=== PATIENT | male | born 1970 | race Caucasian/White ===

== ENCOUNTER 2019-07-19 16:06 | Emergency (ER) | payer BC ==
[2019-07-19 16:15] VITALS: BP 144/81; RESP 18; TEMP 98.5
[2019-07-19] MEDS ORDERED: IPRATROPIUM-ALBUTEROL 3 ML NEB INHALATION STA (16:37)
--- NOTE | 2019-07-19 16:42 | ED ---
General Adult HPI - General Chief complaint: Shortness of Breath Stated complaint: Bronchitis Time Seen by Provider: 07/19/19 16:25 Source: patient Mode of arrival: ambulatory Limitations: no limitations - History of Present Illness Initial comments: Patient presents to the ED with his for evaluation. Patient states that he has had a productive cough for the past week or so, and he states that he has "not felt well". Patient states that he was seen at an urgent care 3 days ago, and he was started on a course of prednisone at that time. Patient also states that he was prescribed an albuterol inhaler and albuterol nebules for his nebulizer machine. Patient states that despite these treatments, his symptoms have not improved. Patient denies feeling dyspneic to me. Patient denies having any pain, fever or chills, headache, sore throat, chest pain, hemoptysis, palpitations, dizziness, abdominal pain, nausea/vomiting/diarrhea, dysuria or urinary symptoms, decreased urine output, leg or calf swelling or pain, or any other symptoms or complaints. - Related Data Previous Rx's Medication Instructions Recorded Doxycycline Hyclate 100 mg PO Q12H 7 Days #14 tab 07/19/19 Allergies Allergy/AdvReac Type Severity Reaction Status Date / Time No Known Allergies Allergy Verified 07/19/19 16:15 Review of Systems ROS Statement: Those systems with pertinent positive or pertinent negative responses have been documented in the HPI. ROS Other: All systems not noted in ROS Statement are negative. Past Medical History Past Medical History: No Reported History Additional Past Surgical History / Comment(s): fatty lyphoma- back Past Psychological History: No Psychological Hx Reported Smoking Status: Current every day smoker Past Alcohol Use History: Occasional Past Drug Use History: None Reported General Exam Limitations: no limitations General appearance: alert, in no apparent distress Head exam: Present: atraumatic, normocephalic Eye exam: Present: normal appearance, EOMI ENT exam: Present: normal oropharynx, mucous membranes moist Neck exam: Present: other (Trachea is in midline) Respiratory exam: Present: normal lung sounds bilaterally, other (Moderate bilateral expiratory wheezes). Absent: respiratory distress, rales, rhonchi Cardiovascular Exam: Present: regular rate, normal rhythm, normal heart sounds, other (Normal radial pulses bilaterally) GI/Abdominal exam: Present: soft. Absent: distended, tenderness, guarding Extremities exam: Present: other (Negative Sarah's sign bilaterally). Absent: tenderness, pedal edema, calf tenderness Neurological exam: Present: alert, oriented X3. Absent: motor sensory deficit Psychiatric exam: Present: normal affect, normal mood Skin exam: Present: warm, dry, intact, normal color Course Vital Signs 07/19/19 07/19/19 07/19/19 16:13 16:55 17:02 Temperature 98.5 F Pulse Rate 87 82 86 Respiratory 18 18 18 Rate Blood Pressure 144/81 O2 Sat by Pulse 95 Oximetry Medical Decision Making - Medical Decision Making Patient reports some relief with the DuoNeb treatment that he was given in the ED, and his wheezing has improved on examination at this time. Patient remains alert and breathing comfortably with a normal room air oxygen saturation. Patient's chest x-ray is negative for focal infiltrate. Patient's influenza studies are negative. Will treat patient with a course of doxycycline for a possible bacterial etiology of his acute bronchitis. Patient was instructed to continue using his albuterol inhaler and nebulizer machine as needed/as prescribed. He was also instructed to complete the course of prednisone that he is currently taking. Patient and are aware of the patient's test results, and patient feels comfortable going home at this time. He was counseled about acute bronchitis and wheezing. He was clearly explained return and follow-up instructions. He was instructed to return to the ED should he develop increased shortness of breath or new or worsening symptoms. He was instructed to follow up closely with his primary care provider. Will provide the patient with a work excuse note for tomorrow per his request. - Lab Data Lab Results 07/19/19 Range/Units 14:40 Influenza Type A RNA Not Detected (Not Detectd) Influenza Type B (PCR) Not Detected (Not Detectd) - Radiology Data Radiology results: image reviewed (Chest x-ray shows emphysematous changes, but no focal airspace disease) Disposition Clinical Impression: Acute bronchitis with wheezing Disposition: HOME SELF-CARE Condition: Stable Instructions (If sedation given, give patient instructions): Acute Bronchitis (ED), Bronchospasm (ED) Additional Instructions: Return to the ER immediately should you develop increased shortness of breath, a high fever, chest pain, vomiting, feeling dizzy or faint, or new or worsening symptoms. Follow up closely with your primary care provider. Prescriptions: Doxycycline Hyclate 100 mg PO Q12H 7 Days #14 tab Is patient prescribed a controlled substance at d/c from ED?: No Referrals: Barby Mac DO [Primary Care Provider] - 1-2 days Time of Disposition: 17:10
[2019-07-19] MEDS ORDERED: DOXYCYCLINE 100 MG CAP PO STA (16:57)
--- NOTE | 2019-07-19 16:58 | XR ---
EXAMINATION TYPE: XR chest 2V DATE OF EXAM: 07/19/2019 COMPARISON: NONE HISTORY: Cough and congestion. TECHNIQUE: Frontal and lateral views of the chest are obtained. FINDINGS: Underlying emphysematous change may be present. There is no focal air space opacity, pleura l effusion, or pneumothorax seen. The cardiac silhouette size is within normal limits. The osseous structures are intact. IMPRESSION: No suspicious acute pulmonary process.
[2019-07-19 17:03] VITALS: PULSE 86
== END 2019-07-19 17:05 | disposition home or self-care (01) ==
LOC: EC 16:06
DX: J20.9 Acute bronchitis, unspecified (principal); F17.200 Nicotine dependence, unspecified, uncomplicated
CPT/HCPCS: 71046; 87502; 94640; 99285

== ENCOUNTER 2021-03-06 02:18 | Emergency (ER) | payer BC ==
[2021-03-06 02:25] VITALS: BP 140/97; PULSE 81; RESP 18; TEMP 98
--- NOTE | 2021-03-06 02:55 | ED ---
Eye Problem HPI - General Chief complaint: Eye Problems Stated complaint: Eye Problems Time Seen by Provider: 03/06/21 02:23 Source: patient, RN notes reviewed, old records reviewed Mode of arrival: ambulatory Limitations: no limitations - History of Present Illness Initial comments: This is a 51-year-old male to the emergency department for evaluation of eye pain patient has bilateral eye pain more right-sided eye pain. Symptoms on and off for months that have been increased lately. Patient also admits to runny nose, congestion. No fevers no traumas. Some blurry vision although that is improved. No other complaints MD chief complaint: eye pain, vision change (Blurry) -: month(s) Onset Description: gradual Location: right eye, left eye, both eyes Place: home If Injury: none Eye Symptoms: blurry vision Severity: mild Severity scale (1-10): 5 If Pain, Quality: aching, throbbing Consistency: intermittent Context: recent uri Associated Symptoms: none Treatments Prior to Arrival: none - Related Data Previous Rx's Medication Instructions Recorded Doxycycline Hyclate 100 mg PO Q12H 7 Days #14 tab 07/19/19 Amoxic-Pot Clav 875-125Mg 1 tab PO Q12HR #20 tablet 03/06/21 [Augmentin 875-125] Allergies Allergy/AdvReac Type Severity Reaction Status Date / Time No Known Allergies Allergy Verified 03/06/21 02:25 Review of Systems ROS Statement: Those systems with pertinent positive or pertinent negative responses have been documented in the HPI. ROS Other: All systems not noted in ROS Statement are negative. Past Medical History Past Medical History: No Reported History Additional Past Surgical History / Comment(s): fatty lyphoma- back Past Psychological History: No Psychological Hx Reported Smoking Status: Never smoker Past Alcohol Use History: Occasional Past Drug Use History: None Reported General Exam - General Exam Comments Initial Comments: No foreign body noted No abrasion noted Pressure is normal No pain to touch General appearance: alert, in no apparent distress Head exam: Present: atraumatic, normocephalic, normal inspection Eye exam: Present: normal appearance, PERRL, EOMI. Absent: scleral icterus, con junctival injection, periorbital swelling ENT exam: Present: normal exam, mucous membranes moist Neck exam: Present: normal inspection. Absent: tenderness, meningismus, lymphadenopathy Respiratory exam: Present: normal lung sounds bilaterally. Absent: respiratory distress, wheezes, rales, rhonchi, stridor Cardiovascular Exam: Present: regular rate, normal rhythm, normal heart sounds. Absent: systolic murmur, diastolic murmur, rubs, gallop, clicks GI/Abdominal exam: Present: soft, normal bowel sounds. Absent: distended, tenderness, guarding, rebound, rigid Extremities exam: Present: normal inspection, full ROM, normal capillary refill. Absent: tenderness, pedal edema, joint swelling, calf tenderness Back exam: Present: normal inspection Neurological exam: Present: alert, oriented X3, CN II-XII intact Psychiatric exam: Present: normal affect, normal mood Skin exam: Present: warm, dry, intact, normal color. Absent: rash Course Vital Signs 03/06/21 02:21 Temperature 98 F Pulse Rate 81 Respiratory 18 Rate Blood Pressure 140/97 O2 Sat by Pulse 96 Oximetry - Reevaluation(s) Reevaluation #1: 03/06/21 04:50 Record is reviewed Patient symptoms are improved here in the ER Patient is informed of results and questions are answered Patient is in no distress Medical Decision Making - Medical Decision Making 51 male presented today for evaluation of bilateral eye pain patient does appear to have a significant sinusitis will be placed on antibiotics discharge home. No current vision changes - Radiology Data Radiology results: report reviewed (CT facial bones is positive for sinusitis), image reviewed Disposition Clinical Impression: Sinusitis Disposition: HOME SELF-CARE Condition: Good Instructions (If sedation given, give patient instructions): Sinusitis (ED) Prescriptions: Amoxic-Pot Clav 875-125Mg [Augmentin 875-125] 1 tab PO Q12HR #20 tablet Is patient prescribed a controlled substance at d/c from ED?: No Referrals: Barby Mac DO [Primary Care Provider] - 1-2 days
--- NOTE | 2021-03-06 03:17 | CT ---
EXAMINATION TYPE: CT facial bones wo con DATE OF EXAM: 03/06/2021 COMPARISON: None HISTORY: right eye pressure CT DLP: 462.4 mGycm Automated exposure control for dose reduction was used. Images obtained from the bottom of the mandible to the top of the frontal sinuses without contrast. Mandibular ring is intact. Zygomatic arches appear normal. Nasal bone is intact. Maxilla is intact. T here is no evidence of retro-orbital mass. The globes are symmetric. There is no evidence of orbital fracture. There is no evidence of a blowout fracture of the orbits. There is small mucus retention cy sts in the maxillary sinuses. There is some mucosal thickening in the frontal and ethmoid sinuses. There is no evidence of periorbital mass. IMPRESSION: No evidence of orbital mass. I do not see a cause for right side pain. Small mucus retention cysts in the maxillary sinuses. Mild frontal and anterior ethmoid sinusitis.
[2021-03-06] MEDS ORDERED: ACET/COD 300 MG/30 MG STARTER PACK 6 TAB BTL PO STA (03:27)
[2021-03-06] MEDS ORDERED: ACETAMINOPHEN TAB 325 MG TAB PO STA (03:27)
[2021-03-06] MEDS ORDERED: AMOXIC-POT CLAV 875-125MG 1 EACH TAB PO STA (03:27)
[2021-03-06] MEDS ORDERED: Acetaminophen-Codeine 300-30mg TAB PO STA (03:27)
[2021-03-06] MEDS ORDERED: IBUPROFEN 600 MG TAB PO STA (03:27)
[2021-03-06] MEDS ORDERED: IBUPROFEN 600 MG STARTER PACK 4 TAB BTL PO STA (03:27)
[2021-03-06] MEDS ORDERED: AMOXIC-POT CLAV 875MG STARTER PACK 2 TAB BTL PO STA (03:27)
[2021-03-06] MEDS ORDERED: LORATADINE-PSEUDOEPH 5-120 MG 1 EACH TAB.ER.12H PO ONE (03:30)
== END 2021-03-06 03:56 | disposition home or self-care (01) ==
LOC: EC 02:18
DX: J32.9 Chronic sinusitis, unspecified (principal)
CPT/HCPCS: 70486; 99283

== ENCOUNTER → 2023-01-08 | Outpatient (CLI) | payer BC ==
--- NOTE | 2023-01-08 09:07 | CTL ---
EXAMINATION TYPE: CT Low Dose Lung DATE OF EXAM ORDERED: 01/08/2023 HISTORY: 52-year-old male Z87.891, nicotine dependence, current smoker, 38 pack-year history. Lung ca ncer screening CT DLP: 100.[address] CTDI: 2.40 mGy Automated exposure control for dose reduction was used. SCREENING VISIT: Baseline COMPARISON: Radiograph 07/19/2019 TECHNIQUE: Low dose computed tomography scan was performed through the chest at 1 mm thick sections a nd reconstructed images in multiple planes at 1 mm and [address] DIAGNOSTIC QUALITY: Satisfactory FINDINGS: Heart normal size without pericardial effusion. 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 Conventional arch vessel branching anatomy. No thoracic lymphadenopathy by CT size criteria. Biapical pleural parenchymal scarring. Mild diffuse bronchial wall thickening. Prominent paraseptal e mphysema in the upper and midlungs. No consolidation or pleural effusion. 6 mm anterior right midlung pulmonary nodule, axial 188. Tiny 3 mm inferior lingular pulmonary nodule, axial image 254. Visualized upper abdomen shows no gross abnormality. Bones: Mild scattered degenerative disc disease. IMPRESSION: 1. LungRADS Category 3 (probably benign, 1-2% chance of malignancy); a couple pulmonary nodules measu ring up to 6 mm on baseline screening. 2. COPD with prominent upper lung paraseptal emphysema. 3. Mild aneurysm ascending aorta 4.[address] LUNG RAD AND CT CHEST RECOMMENDATION: Lung-Rad 3 Probably Benign: 6 month follow-up LDCT.
== END | disposition home or self-care (01) ==
LOC: RADCTMAIN 06:05
PROVIDERS: ATTEND Physician Assistant Medical
DX: Z12.2 Encounter for screening for malignant neoplasm of respiratory organs (principal); J43.9 Emphysema, unspecified; I71.21 Aneurysm of the ascending aorta, without rupture; F17.210 Nicotine dependence, cigarettes, uncomplicated; R91.8 Other nonspecific abnormal finding of lung field
CPT/HCPCS: 71271

== ENCOUNTER → 2023-07-08 | Outpatient (CLI) | payer BC ==
--- NOTE | 2023-07-08 12:01 | CT ---
EXAMINATION TYPE: CT chest w con DATE OF EXAM: 07/08/2023 COMPARISON: 01/08/2023 HISTORY: Abnormal finding of lung field CT DLP: 254.60 mGycm, Automated exposure control for dose reduction was used. CONTRAST: Performed injected with 100 ml mL of Isovue 300. TECHNIQUE: Axial images were obtained at 5 mm thick sections. Reconstructed images are reviewed on [employer]atter computer in the coronal plane. FINDINGS: Portion of the thyroid visualized is normal. Emphysematous changes are present. Paraseptal emphysematous changes are present on the right. Some sc arring is likely present on the right apex. Small density within the anterior right lung appears stable from the comparison. Series 4 image 40. Small lingular density not identified on the current exam. Encourage smoking cessation. Series 4 image 14. No enlarged mediastinal or hilar adenopathy is evident. The ascending aorta diameter at the level o f the main pulmonary artery is 3.5 cm. The main pulmonary artery diameter at the bifurcation is 2.[address] sections are obtained through the upper abdomen. Abdomen is essentially unremarkable. IMPRESSION: 1. Emphysematous changes within the lung chisholm. 2. Stable right midlung density. Follow-up CT chest in 6 months is recommended. 3. Encourage smoking cessation.
== END | disposition home or self-care (01) ==
LOC: RADCTMAIN 08:27
PROVIDERS: ATTEND Family Medicine
DX: J43.9 Emphysema, unspecified (principal); R91.8 Other nonspecific abnormal finding of lung field
CPT/HCPCS: 71260; Q9967

== ENCOUNTER 2023-10-15 08:47 | Day surgery (SDC) | payer BC ==
[2023-10-14 08:51] VITALS: BMI 21.4
[2023-10-15] MEDS: LACTATED RINGERS 1,000 ML IV SCH (09:15)
[2023-10-15 09:36] VITALS: TEMP 98.2
[2023-10-15] MEDS ORDERED: PROPOFOL 10 MG/ML 20 ML VIAL IV ONE (09:43)
--- NOTE | 2023-10-15 09:47 | P.GSHP ---
History of Present Illness H&P Date: 10/15/23 Chief Complaint: Colon cancer screening 53-year-old male here for colonoscopy. Patient without bowel complaints. No family history of colon cancer. Past Medical History Past Medical History: No Reported History History of Any Multi-Drug Resistant Organisms: None Reported Additional Past Surgical History / Comment(s): fatty lyphoma- back Past Anesthesia/Blood Transfusion Reactions: No Reported Reaction Additional Past Anesthesia/Blood Transfusion Reaction / Comment(s): no blood transfusion Smoking Status: Current every day smoker Medications and Allergies Home Medications Medication Instructions Recorded Confirmed Type Magnesium Carb,Citrate,Oxide 300 mg PO DAILY 10/14/23 10/15/23 History [Magnesium Complex] Multivitamin [Multivitamins Adult 1 each PO DAILY 10/14/23 10/15/23 History Gummies] Zinc Gluconate [Zinc] 50 mg PO DAILY 10/14/23 10/15/23 History Allergies Allergy/AdvReac Type Severity Reaction Status Date / Time No Known Allergies Allergy Verified 10/15/23 09:12 Surgical - Exam Vital Signs Temp Pulse Resp BP Pulse Ox 98.2 F 83 18 125/85 99 10/15/23 09:12 10/15/23 09:12 10/15/23 09:12 10/15/23 09:12 10/15/23 09:12 Physical exam: General: Well-developed, well-nourished HEENT: Normocephalic, sclerae nonicteric Abdomen: Nontender, nondistended Extremities: No edema Neuro: Alert and oriented Assessment and Plan (1) Colon cancer screening Narrative/Plan: Will proceed with colonoscopy at this time Current Visit: Yes Status: Acute Code(s): Z12.11 - ENCOUNTER FOR SCREENING FOR MALIGNANT NEOPLASM OF COLON SNOMED Code(s): 624245316
--- NOTE | 2023-10-15 10:03 | P.PCN ---
Date of Procedure: 10/15/23 Procedure(s) Performed: PREOPERATIVE DIAGNOSIS: Colon cancer screening POSTOPERATIVE DIAGNOSIS: Rectal polyp PROCEDURE: Colonoscopy with snare polypectomy ANESTHESIA: MAC SURGEON: Kendall Pantoja M.D. SPECIMENS: Rectal polyp ENDOSCOPIC PROCEDURE: The patient was placed on the endoscopy table in the left decubitus position. The Olympus colonoscope was inserted into the anus and passed under direct visualization to the base of the cecum. The appendiceal orifice was visualized. From that point the scope was slowly withdrawn inspecting all surfaces carefully. There were no neoplastic inflammatory or polypoid lesions throughout the cecum, ascending, transverse, descending, and sigmoid colon. In the rectum a small polyp was seen and removed using the snare with cautery technique. The remainder of the rectum was normal. There was no visible diverticulosis. Digital rectal examination was normal. The patient was taken to the recovery room in stable condition per anesthesia guidelines. RECOMMENDATIONS: Await biopsy results. Anticipate repeat colonoscopy 5 to 7 years.
[2023-10-15 10:46] VITALS: BP 137/85; PULSE 79; RESP 18
== END 2023-10-15 11:06 | disposition home or self-care (01) ==
LOC: ORWHC2ENDO 08:47
PROVIDERS: ATTEND Surgery
DX: Z12.11 Encounter for screening for malignant neoplasm of colon (principal); D12.8 Benign neoplasm of rectum; F17.210 Nicotine dependence, cigarettes, uncomplicated; Z79.899 Other long term (current) drug therapy
CPT/HCPCS: 88305; 45385; J2704